=== PATIENT | male | born 1940 | race Caucasian/White ===

== ENCOUNTER 2017-03-24 14:11 | Emergency (ER) | payer MEDICARE, OTHER ==
[2017-03-24] MEDS ORDERED: Albuterol/Ipratropium 3.0-0.5 MG/3 ML Neb Soln NEB ONE (14:15)
[2017-03-24] MEDS ORDERED: Sodium Chloride 0.9% 1,000 ML IV ONE (14:20)
[2017-03-24] MEDS ORDERED: Ketorolac 30 MG/ML SDV IVPUSH ONE (14:20)
--- NOTE | 2017-03-24 14:32 | EDM.PDOC ---
ED HPI GENERAL MEDICAL PROBLEM - General Chief Complaint: Respiratory Problem Stated Complaint: SHORTNESS OF BREATH Time Seen by Provider: 03/24/17 14:15 Source of Information: Reports: Patient History Limitations: Reports: No Limitations - History of Present Illness INITIAL COMMENTS - FREE TEXT/NARRATIVE: History of present illness: [76-year-old male presenting with acute shortness of breath. Patient is a known asthmatic and has been on vacation for the last 2 and 3:30 weeks and had left his home without bringing his routine medication by accidentally leaving it on the kitchen table. Patient to case he is on a asthma suppressant of dew I as well as using a nebulizer he has neither of those medications with him he only had his rescue inhaler which she's verbalized concerned because he's had to use a significant amount more than is his normal baseline.] Review of systems: As per history of present illness and below otherwise all systems reviewed and negative. Past medical history: As per history of present illness and as reviewed below otherwise noncontributory. Surgical history: As per history of present illness and as reviewed below otherwise noncontributory. Social history: No reported history of drug or alcohol abuse. Family history: As per history of present illness and as reviewed below otherwise noncontributory. Physical exam: HEENT: Atraumatic, normocephalic, pupils reactive, negative for conjunctival pallor or scleral icterus, mucous membranes moist, throat clear, neck supple, nontender, trachea midline. Lungs: Poor air movement with inspiratory and expiratory wheeze noted otherwise limited air movement but breath sounds equal bilaterally, chest nontender. Heart: S1S2, regular, negative for clicks, rubs, or JVD. Abdomen: Soft, nondistended, nontender. Negative for masses or hepatosplenomegaly. Negative for costovertebral tenderness. Pelvis: Stable nontender. Genitourinary: Deferred. Rectal: Deferred. Extremities: Atraumatic, negative for cords or calf pain. Neurovascular unremarkable. Neuro: Awake, alert, oriented. Cranial nerves II through XII unremarkable. Cerebellum unremarkable. Motor and sensory unremarkable throughout. Exam nonfocal. Patient presenting with shortness of breath inability to complete sentences after DuoNeb treatment significantly better patient napping off and on indicates he feels better would like to go home Diagnostics: [CBC, CMP, troponin, BNP, EKG] Therapeutics: [Duo neb, IV fluid] Impression: [Asthma exacerbation acute on chronic] Plan: [Prescribed asthma medicine for here] Definitive disposition and diagnosis as appropriate pending reevaluation and review of above. - Related Data Allergies Allergy/AdvReac Type Severity Reaction Status Date / Time No Known Allergies Allergy Verified 03/24/17 14:18 Home Meds: Home Meds Albuterol [IMW: Albuterol] 2.5 mg .XX Q6H #25 ml 03/24/17 [Rx] Albuterol [Proventil Neb Soln] 0 mg NEB ASDIRECTED 03/24/17 [History] Lisinopril 0 tab PO DAILY 03/24/17 [History] Mometasone/Formoterol [Dulera 200-5 MCG] 2 puff IH BIDRT #1 inhaler 03/24/17 [Rx ] ED ROS GENERAL - Review of Systems Review Of Systems: See Below (See history of present illness) ED EXAM, GENERAL - Physical Exam Exam: See Below (See history of present illness) Course - Vital Signs Last Recorded V/S: Last Vital Signs Temp 36.1 C 03/24/17 14:19 Pulse 67 03/24/17 14:19 Resp 22 H 03/24/17 14:19 BP 169/77 H 03/24/17 14:19 Pulse Ox 95 03/24/17 14:19 - Orders/Labs/Meds Orders: Active Orders 24 hr Category Date Time Status RT Aerosol Therapy [RC] ASDIRECTED Care 03/24/17 14:15 Active CXR [Chest 2V] [CR] Stat Exams 03/24/17 15:26 Taken Labs: Laboratory Tests 03/24/17 03/24/17 03/24/17 Range/Units 14:29 14:29 14:29 WBC 9.12 (4.0-11.0) K/uL RBC 5.37 (4.50-5.90) M/uL Hgb 16.6 (13.0-17.0) g/dL Hct 50.5 H (38.0-50.0) % MCV 94.0 (80.0-98.0) fL MCH 30.9 (27.0-32.0) pg MCHC 32.9 (31.0-37.0) g/dL RDW Std Deviation 49.7 (28.0-62.0) fl RDW Coeff of Batsheva 15 (11.0-15.0) % Plt Count 216 (150-400) K/uL MPV 11.20 (7.40-12.00) fL Neut % (Auto) 57.3 (48.0-80.0) % Lymph % (Auto) 27.6 (16.0-40.0) % [place] % (Auto) 9.4 (0.0-15.0) % Eos % (Auto) 4.6 (0.0-7.0) % Baso % (Auto) 1.1 (0.0-1.5) % Neut # (Auto) 5.2 (1.4-5.7) K/uL Lymph # (Auto) 2.5 H (0.6-2.4) K/uL [place] # (Auto) 0.9 H (0.0-0.8) K/uL Eos # (Auto) 0.4 (0.0-0.7) K/uL Baso # (Auto) 0.1 (0.0-0.1) K/uL Nucleated RBC % 0.0 /100WBC Nucleated RBCs # 0 K/uL Sodium 139 (136-146) mmol/L Potassium 3.8 (3.5-5.1) mmol/L Chloride 107 (98-110) mmol/L Carbon Dioxide 23 (21-31) mmol/L BUN 15 (6.0-23.0) mg/dL Creatinine 0.9 (0.6-1.5) mg/dL Est Cr Clr Drug Dosing TNP Estimated GFR (MDRD) > 60.0 ml/min Glucose 102 (60-110) mg/dL Calcium 8.9 (8.8-10.8) mg/dL Total Bilirubin 0.6 (0.1-1.5) mg/dL AST 24 (5-40) IU/L ALT 33 (8-54) IU/L Alkaline Phosphatase 52 (40-150) Troponin I < 0.10 (0.0-0.29) NG/ML B-Natriuretic Peptide (<100) PG/ML Total Protein 6.7 (6.0-8.0) g/dL Albumin 3.8 (3.4-4.8) g/dL Globulin 2.9 (2.0-3.5) g/dL Albumin/Globulin Ratio 1.3 (1.3-2.8) 03/24/17 Range/Units 14:29 WBC (4.0-11.0) K/uL RBC (4.50-5.90) M/uL Hgb (13.0-17.0) g/dL Hct (38.0-50.0) % MCV (80.0-98.0) fL MCH (27.0-32.0) pg MCHC (31.0-37.0) g/dL RDW Std Deviation (28.0-62.0) fl RDW Coeff of Batsheva (11.0-15.0) % Plt Count (150-400) K/uL MPV (7.40-12.00) fL Neut % (Auto) (48.0-80.0) % Lymph % (Auto) (16.0-40.0) % [place] % (Auto) (0.0-15.0) % Eos % (Auto) (0.0-7.0) % Baso % (Auto) (0.0-1.5) % Neut # (Auto) (1.4-5.7) K/uL Lymph # (Auto) (0.6-2.4) K/uL [place] # (Auto) (0.0-0.8) K/uL Eos # (Auto) (0.0-0.7) K/uL Baso # (Auto) (0.0-0.1) K/uL Nucleated RBC % /100WBC Nucleated RBCs # K/uL Sodium (136-146) mmol/L Potassium (3.5-5.1) mmol/L Chloride (98-110) mmol/L Carbon Dioxide (21-31) mmol/L BUN (6.0-23.0) mg/dL Creatinine (0.6-1.5) mg/dL Est Cr Clr Drug Dosing Estimated GFR (MDRD) ml/min Glucose (60-110) mg/dL Calcium (8.8-10.8) mg/dL Total Bilirubin (0.1-1.5) mg/dL AST (5-40) IU/L ALT (8-54) IU/L Alkaline Phosphatase (40-150) Troponin I (0.0-0.29) NG/ML B-Natriuretic Peptide 42 (<100) PG/ML Total Protein (6.0-8.0) g/dL Albumin (3.4-4.8) g/dL Globulin (2.0-3.5) g/dL Albumin/Globulin Ratio (1.3-2.8) Meds: Medications Discontinued Medications Generic Name Dose Route Start Last Admin Trade Name Salvadorq PRN Reason Stop Dose Admin Albuterol/Ipratropium 3 ml 03/24/17 14:15 03/24/17 14:36 Duoneb 3.0-0.5 Mg/3 Ml NEB 03/24/17 14:16 3 ml ONETIME ONE Administration Sodium Chloride 1,000 mls @ 999 mls/hr 03/24/17 14:20 03/24/17 14:38 Normal Saline IV 03/24/17 15:20 999 mls/hr STAT ONE Administration Ketorolac Tromethamine 30 mg 03/24/17 14:20 03/24/17 14:38 Toradol IVPUSH 03/24/17 14:21 30 mg ONETIME ONE Administration Departure - Departure Time of Disposition: 16:47 Disposition: Home, Self-Care 01 Condition: Good Clinical Impression: Asthma with acute exacerbation in adult - Discharge Information Prescriptions: Albuterol [IMW: Albuterol] 2.5 mg .XX Q6H #25 ml Mometasone/Formoterol [Dulera 200-5 MCG] 2 puff IH BIDRT #1 inhaler Instructions: Asthma, Adult, Shortness of Breath, [id number] Forms: ED Department Discharge Additional Instructions: The following information is given to patients seen in the emergency department who are being discharged to home. This information is to outline your options for follow-up care. We provide all patients seen in our emergency department with a follow-up referral. The need for follow-up, as well as the timing and circumstances, are variable depending upon the specifics of your emergency department visit. If you don't have a primary care physician on staff, we will provide you with a referral. We always advise you to contact your personal physician following an emergency department visit to inform them of the circumstance of the visit and for follow-up with them and/or the need for any referrals to a consulting specialist. The emergency department will also refer you to a specialist when appropriate. This referral assures that you have the opportunity for follow-up care with a specialist. All of these measure are taken in an effort to provide you with optimal care, which includes your follow-up. Under all circumstances we always encourage you to contact your private physician who remains a resource for coordinating your care. When calling for follow-up care, please make the office aware that this follow-up is from your recent emergency room visit. If for any reason you are refused follow-up, please contact the [facility] Emergency Department at and asked to speak to the emergency department charge nurse. Take medication as directed Follow-up with the PCP while here Return to ED as needed as discussed [facility] [address] [place] [id number] - My Orders Last 24 Hours: My Active Orders 03/24/17 14:15 RT Aerosol Therapy [RC] ASDIRECTED 03/24/17 15:26 CXR [Chest 2V] [CR] Stat - Assessment/Plan Last 24 Hours: My Active Orders 03/24/17 14:15 RT Aerosol Therapy [RC] ASDIRECTED 03/24/17 15:26 CXR [Chest 2V] [CR] Stat
[2017-03-24 14:58] LABS: CHLORIDE,CL 107 mmol/L (98-110); SODIUM,NA 139 mmol/L (136-146)
[2017-03-24 17:30] VITALS: BP 173/80
--- NOTE | 2017-03-25 14:29 | CR ---
EXAM DATE: 03/24/17 PATIENT'S AGE: 76 Patient: JORGITO WATKINS Facility: [place], [place] Site . Site : [id number] Study: XRay Chest [id number]/5/2017 4:11:10 PM Ordering Physician: Doctor Zuñiga Final Report: INDICATION: [id number]. Asthma. COMPARISON: None. FINDINGS/IMPRESSION: Chest, 2 views. Mild to moderate elevation of the left diaphragm. Mild left basilar lung stranding favored to represent atelectasis or scarring. Lungs otherwise clear. No pleural effusions. Upper normal heart size. Unremarkable pulmonary vasculature. Bony structures appear normal for age. Dictated by Loc Kunz MD @ 03/24/2017 4:16:55 PM Dictated by: Loc Kunz MD @ 03/24/2017 16:17:02 (Electronic Signature) Report Signed by Proxy. NAUN
== END 2017-03-24 17:01 | disposition home or self-care (01) ==
LOC: MW.ED 14:11
DX: J45.901 Unspecified asthma with (acute) exacerbation (principal); Z79.899 Other long term (current) drug therapy
CPT/HCPCS: 36415; 71020; 80053; 83880; 84484; 85025; 94664; 96361; 96374; 99285; J1885; J7040; 99283